=== PATIENT | female | born 1970 | race Caucasian/White ===

== ENCOUNTER 2020-06-24 23:55 | Emergency (ER) | payer SELFPAY ==
--- NOTE | ~2020-06-24 | CT_ITS ---
EXAMINATION: CTA chest PE protocol DATE: 06/25/2020 01:03 INDICATION: Shortness of breath and chest pain TECHNIQUE: Computed tomography angiography (CTA) of the chest was performed with 100 mL Omnipaque-350 intravenous contrast timed to evaluate the pulmonary arteries. Coronal maximum intensity projection 3D-reconstructions were created by the technologist. The dose-length product (DLP) was 581.39 mGy-cm. Automated exposure control and iterative reconstruction technique were employed. COMPARISON: None. FINDINGS: The pulmonary arteries are well-opacified. No pulmonary embolism is identified. There is mi ld atelectasis of the right middle lobe, lingula, and lower lobes. No pleural effusion or pneumothora x is identified. Left lower lobe nodules measure up to 3 mm. No pathologically enlarged thoracic lymp h nodes are identified. The heart size is normal. The gallbladder is surgically absent. There is mild thoracic spondylosis. IMPRESSION: 1. No pulmonary embolism. 2. Left lower lobe nodules measuring up to 3 mm. If the patient has no risk factors for malignancy, n o further follow up is required. If there are risk factors for malignancy (i.e., history of smoking, asbestos or radiation exposure), consider followup CT in 12 months. Reviewed, dictated and finalized at location A. IMPRESSION: 1. No pulmonary embolism. 2. Left lower lobe nodules measuring up to 3 mm. If the patient has no risk fac tors for malignancy, no further follow up is required. If there are risk facto rs for malignancy (i.e., history of smoking, asbestos or radiation exposure), c onsider followup CT in 12 months.
[2020-06-25 00:05] VITALS: BP 153/104; PULSE 102; RESP 28; TEMP 36.7; O2SAT 96
[2020-06-25 00:09] VITALS: PULSE 98
--- NOTE | 2020-06-25 00:09 | ECG_ITS ---
Measurements Intervals [place] Rate: 98 P: 65 OK: 157 QRS: -5 QRSD: 89 T: -6 QT: 355 QTc: 455 Interpretive Statements SINUS RHYTHM VOLTAGE CRITERIA FOR LVH MINIMAL Q WAVES- HIGH LATERAL LEADS BORDERLINE ST-T WAVE ABNORMALITY- INFERIOR LEADS BORDERLINE ECG Electronically Signed On 06-25-2020 6:48:27 CDT by Abundio Christine D.O.
--- NOTE | 2020-06-25 00:34 | ED.CHESTPAIN ---
HPI - Chest Pain General Chief Complaint: Chest Pain Stated Complaint: chest pains Time Seen by Provider: 06/25/20 00:19 History of Present Illness HPI narrative: Patient presents with her for lower chest pain for 4 days. She gives it a 7 out of 10. She has had chills with this and shortness of breath with exertion. She denies having any reflux symptoms.. She is not on control and there are no blood clots in her family. She has not had any fever. 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 She has been under a lot of stress. She does not have a cough. She does have a headache of 6 out of 10. At home she tried Tylenol and aspirin for her chest pain both of which helped a little. She does not smoke, drink alcohol, or do drugs. Her surgeries include a uterine ablation. MD complaint: chest pain Pertinent past history: other (Hypertension, not on meds.) Onset (ago): day(s) Timing of current episode: constant Prior episodes: Yes Onset: during rest and during exertion Pain location: substernal Severity: moderate Pain scale (0-10): 7 Relieving factors: nothing Exacerbating factors: nothing Context: non compliance with medication (Stop taking her Norvasc month ago) Associated symptoms: other (Chills) Treatment prior to arrival: aspirin and other (Tylenol) Risk Factors Coronary artery disease risk factors: hypertension Thoracic aortic dissection risk factors: longstanding hypertension Related Data On Oral Contraceptives: No Allergies Allergy/AdvReac Type Severity Reaction Status Date / Time epinephrine Allergy Mild PALPATATIONS, Verified 06/25/20 01:05 HEADACHE, SWEATS lisinopril Allergy Unknown abdominal Verified 06/25/20 01:05 pain aspartame AdvReac Severe SEVERE Verified 06/25/20 01:05 HEADACHE SOME TYPE OF NUMBING MED Allergy HIVES Uncoded 06/25/20 01:05 Review of Systems Review of Systems: Narrative: CONSTITUTIONAL: Denies fever, chills, or sweats. EYES: Denies visual changes, redness, or discharge. ENT: Denies rhinorrhea, congestion, sore throat, or otalgia. CARDIOVASCULAR: She has chest pain, but not palpitations, or edema. RESPIRATORY: Denies cough but does have dyspnea. GASTROINTESTINAL: Denies abdominal pain, nausea, vomiting, or diarrhea. GENITOURINARY: Denies dysuria or hematuria. SKIN: Denies rash or itching. MUSCULOSKELETAL: Denies back pain, joint pain, or myalgia. NEUROLOGIC: Denies headache, numbness, or weakness. PSYCHIATRIC: Denies anxiety or depression. All systems reviewed & are unremarkable except as noted in HPI and below PMFSH Surgical History Surgical History (Updated 06/25/20 @ 00:38 by Moni Walden MD) History of endometrial ablation Family History Family History (Updated 11/03/18 @ 09:10 by DOCTOR UNKNOWN) Father Carcinoma of colon, Onset Age: 50 Other Family history of cardiovascular disease Social History Social History Smoking status: Never smoker Alcohol intake: never Gender identity (if verbalized by the patient): Female Exam Narrative: Exam Narrative: GENERAL: Well-appearing, well-nourished, and in no acute distress. HEAD: Normocephalic, atraumatic. EYES: PERRLA and EOMI. ENT: Nares clear, no rhinorrhea or epistaxis. Mucous membranes moist. NECK: Supple. CHEST: Clear to auscultation. No respiratory distress. No chest wall tenderness HEART: Regular rate and rhythm. No murmur heard. Normal peripheral pulses. ABDOMEN: Soft, nontender, nondistended, normal active bowel sounds. EXTREMITIES: Normal range of motion. No edema. SKIN: Warm, dry, no rash. NEURO: No focal deficits. Alert and oriented x3. PSYCH: Normal mood and affect. Course Reevaluation(s) Reevaluation #1: Went back in to see the patient and her . I explained that the CAT scan did not give us any helpful information on why she is having the chest pain. She does feel better with the medicine given here. I recommen
[2020-06-25 00:44] LABS: Basophils Percent Auto 0.4 % (0.2-1.2); Eosinophils Absolute Auto 0.1 K/mm3 (0-0.3); Eosinophils Percent Auto 0.9 % (0-4.4); Hematocrit 38.7 % (37.0-47.0); Hemoglobin 12.8 g/dL (12.0-15.0); Immature Granulocyte Absolute 0.02 K/mm3 (0.00-0.031); Immature Granulocyte Percent A 0.2 % (0-0.5); Lymphocytes Absolute Auto 1.29 K/mm3 (0.9-3.2); Lymphocytes Percent Auto 14.5 % (18.3-44.2); Mean Corpuscular HGB Conc 33.1 g/dl (32-36); Mean Corpuscular Volume 87.6 fl (80-100); Mean Platelet Volume 10.2 fl (7.4-10.4); Monocytes Absolute Auto 0.9 K/mm3 (0.1-0.6); Monocytes Percent Auto 9.8 % (2.6-8.5); Neutrophils Absolute Auto 6.6 K/mm3 (1.3-6.7); Neutrophils Percent Auto 74.2 % (45.5-73.1); Platelet Count Result 216 k/mm3 (150-375); Red Blood Count 4.42 M/mm3 (4.2-5.4); Red Cell Distribution Width 13.2 % (11.5-14.5); White Blood Count 8.9 K/mm3 (4.5-10.0)
[2020-06-25 00:45] VITALS: BP 179/97; PULSE 96; RESP 18; O2SAT 96
[2020-06-25 00:56] LABS: Blood Urea Nitrogen 17 mg/dL (7-17); Carbon Dioxide 23 mmol/L (22-30); Chloride 104 mmol/L (98-107); Estimated Glomerular Filt Rate > 60; Glucose 114 mg/dL (65-105); Sodium 137 mmol/L (137-145)
[2020-06-25 00:56] LABS: Estimated Glomerular Filt Rate > 60
[2020-06-25 00:58] LABS: INR 1.2; Prothrombin Time 14.6 Seconds (11.1-14.7)
[2020-06-25 00:59] LABS: Partial Thromboplastin Time 33.8 SECONDS (22.3-36.8)
[2020-06-25] MEDS: FAMOTIDINE 20 MG/2 ML VIAL IV PUSH (01:06)
[2020-06-25] MEDS: SODIUM CHLORIDE 0.9% IV 1,000 ML 999 ML IV CONT (01:06)
[2020-06-25] MEDS: BELLADONNA ALK/PHENOB ELIX 10 ML, MAG HYDROX/ALUMINUM HYD/SIMETH 30 ML, LIDOCAINE HCL 2... PO (01:07)
[2020-06-25 01:08] LABS: Troponin I < 0.012 ng/mL (0.000-0.034)
[2020-06-25 01:11] LABS: NT Pro B Type Natriuretic Pept 217 PG/ML (5-100)
[2020-06-25] MEDS: KETOROLAC 15 MG/ML VIAL (*BKC) IV PUSH (01:19)
[2020-06-25 02:35] VITALS: BP 160/90; PULSE 98; RESP 21; O2SAT 97
== END 2020-06-25 02:46 | disposition home or self-care (01) ==
PROVIDERS: Emergency Provider Emergency Medicine
DX: R07.9 Chest pain, unspecified (principal); I10 Essential (primary) hypertension; R94.31 Abnormal electrocardiogram [ECG] [EKG]
CPT/HCPCS: 36415; 71275; 80048; 83880; 84484; 85025; 85610; 85730; 93005; 96361; 96374; 96375; 99284; A9270; J1885; J7030; Q9967

== ENCOUNTER 2020-09-26 16:41 | Emergency (ER) | payer OTHER, SELFPAY ==
--- NOTE | ~2020-09-26 | XR_ITS ---
EXAMINATION: XR knee RT 3V DATE: 09/26/2020 17:24 INDICATION: Right knee injury. TECHNIQUE: 3 views of right knee on 4 radiographs were obtained. COMPARISON: Right knee radiographs 07/31/2009 FINDINGS: Bone alignment is normal. No fracture. There is mild osteoarthritis of medial and patellofe moral compartments characterized by tiny marginal osteophytes. No knee joint effusion. IMPRESSION: 1. Mild right knee osteoarthritis. Reviewed, dictated and finalized at location A. ITUTIONAL RESEARCH COORDINATOR
--- NOTE | ~2020-09-26 | XR_ITS ---
EXAMINATION: XR hand LT min 3V DATE: 09/26/2020 17:24 INDICATION: Left hand pain. Fall. TECHNIQUE: 3 views of left hand were obtained. COMPARISON: Left wrist radiographs 07/31/2009 FINDINGS: Bone alignment is normal. No fracture. There is mild osteoarthritis of first carpometacarpa l joint. IMPRESSION: 1. Mild osteoarthritis of first carpometacarpal joint. Reviewed, dictated and finalized at location A. PLE JACK
[2020-09-26 16:45] VITALS: BP 145/98; PULSE 97; RESP 16; TEMP 37.1; O2SAT 96
--- NOTE | 2020-09-26 18:12 | ED.GENADULT ---
HPI - General Adult General Chief complaint: Fall Stated complaint: left hand injury Time Seen by Provider: 09/26/20 16:46 Source: patient Mode of arrival: ambulatory Limitations: no limitations History of Present Illness HPI narrative: Patient presents with chief complaint of pain to the left hand and right knee that began after tripping and falling at work and catching herself on her right knee and up with both hands at work. Patient states that the left hand is a wound that is uncomfortable, swollen and bruised. Patient reports abrasions to the anterior aspect of her right knee as well. Patient states that she has a job where she has to lifting so she does not feel that she to do so in the condition of her hand. Patient denies head injury, loss of consciousness or any other injuries. Related Data Allergies Allergy/AdvReac Type Severity Reaction Status Date / Time epinephrine Allergy Mild PALPATATIONS, Verified 06/25/20 01:05 HEADACHE, SWEATS lisinopril Allergy Unknown abdominal Verified 06/25/20 01:05 pain aspartame AdvReac Severe SEVERE Verified 06/25/20 01:05 HEADACHE SOME TYPE OF NUMBING MED Allergy HIVES Uncoded 06/25/20 01:05 Review of Systems Review of Systems: Narrative: CONSTITUTIONAL: Denies fever, chills, or sweats. EYES: Denies visual changes, redness, or discharge. ENT: Denies rhinorrhea, congestion, sore throat, or otalgia. CARDIOVASCULAR: Denies chest pain, palpitations, or edema. RESPIRATORY: Denies cough or dyspnea. GASTROINTESTINAL: Denies abdominal pain, nausea, vomiting, or diarrhea. GENITOURINARY: Denies dysuria or hematuria. SKIN: Reports abrasion denies rash or itching. MUSCULOSKELETAL: Reports left hand right knee pain injury denies back pain or myalgia. NEUROLOGIC: Denies headache, numbness, dizziness, or weakness. PSYCHIATRIC: Denies anxiety or depression. [facility] Surgical History Surgical History (Updated 06/25/20 @ 00:38 by Moni Walden MD) History of endometrial ablation Family History Family History (Updated 11/03/18 @ 09:10 by DOCTOR UNKNOWN) Father Carcinoma of colon, Onset Age: 50 Other Family history of cardiovascular disease Social History Social History Smoking status: Never smoker Alcohol intake: never Gender identity (if verbalized by the patient): Female Exam Narrative: Exam Narrative: GENERAL: Well-appearing, well-nourished, and in no acute distress. HEAD: Normocephalic, atraumatic. EYES: PERRLA and EOMI. ENT: Nares clear, no rhinorrhea or epistaxis. Mucous membranes moist. Bilateral TMs pearly [place] nonbulging NECK: Supple. No adenopathy or masses. No carotid bruits or JVD CHEST: Clear to auscultation. No respiratory distress. No wheezes rales or rhonchi HEART: Regular rate and rhythm. EXTREMITIES: Tenderness, swelling and ecchymosis to the anterior aspect of right knee as well as the base of the first left metacarpal.tenderness to palpation or range of motion. No open wounds noted to left hand. There is no bony tenderness with palpation of right hand. Normal range of motion. No edema. SKIN: Abrasion to anterior aspect of right knee. Nonbleeding. Warm, dry, no rash. NEURO: No focal deficits. Alert and oriented x3. PSYCH: Normal mood and affect. Course Vital Signs Vital signs: Vital Signs Temperature 98.7 F 09/26/20 16:45 Pulse Rate 97 09/26/20 16:45 Respiratory Rate 16 09/26/20 16:45 Blood Pressure 145/98 H 09/26/20 16:45 Pulse Oximetry 96 09/26/20 16:45 Temperature 98.7 F 09/26/20 16:45 Pulse Rate 97 09/26/20 16:45 Respiratory Rate 16 09/26/20 16:45 Blood Pressure 145/98 H 09/26/20 16:45 Pulse Oximetry 96 09/26/20 16:45 Medical Decision Making [facility] Narrative Medical decision making narrative: Patient informed that she has no fractures. Patient has contusions in was given RICE instructions. Patient will be given a note t
[2020-09-26 18:33] VITALS: BP 138/80; PULSE 80; RESP 16; O2SAT 99
== END 2020-09-26 18:34 | disposition home or self-care (01) ==
PROVIDERS: Emergency Provider Family Medicine
DX: S60.222A Contusion of left hand, initial encounter (principal); S80.01XA Contusion of right knee, initial encounter; M18.9 Osteoarthritis of first carpometacarpal joint, unspecified; M17.11 Unilateral primary osteoarthritis, right knee; W01.0XXA Fall on same level from slipping, tripping and stumbling without subsequent striking against object, initial encounter
CPT/HCPCS: 73130; 73562; 99284

== ENCOUNTER 2024-03-29 10:49 | Emergency (ER) | payer BC, SELFPAY ==
[2024-03-29 10:59] VITALS: BP 132/97; PULSE 92; RESP 16; TEMP 36.6; O2SAT 99
--- NOTE | 2024-03-29 11:15 | ED.URI ---
HPI - URI/Sore Throat General Chief Complaint: Upper Respiratory Infection Stated Complaint: COUGH/CHEST/EARS CLOGGED/EYE REDNESS Time Seen by Provider: 03/29/24 11:15 Source: patient Mode of arrival: ambulatory Limitations: no limitations History of Present Illness HPI Narrative: 53 year old female presented for complaint of productive cough, nasal congestion and sinus pressure over the past week. Endorses left ear pressure and has no voice. Feels dizzy at times which she relates to the nasal congestion. Taking allergy med, coricidin, and Vicks without significant improvement. Patient also reports bilateral eyes of bed redness, itching and drainage. She endorses a child was diagnosed with pinkeye and she has been sharing there eye drops. Denies chest pain, palpitations, shortness breath, wheezing nausea vomiting, diarrhea, fevers or chills. Related Data Home Medications Medication Instructions Recorded Confirmed losartan 100 1 tablet PO DAILY 03/29/24 03/29/24 mg-hydrochlorothiazide 12.5 mg tablet Allergies Allergy/AdvReac Type Severity Reaction Status Date / Time epinephrine Allergy Mild PALPATATIONS, Verified 03/29/24 11:06 HEADACHE, SWEATS lisinopril Allergy Unknown abdominal Verified 03/29/24 11:06 pain aspartame AdvReac Severe SEVERE Verified 03/29/24 11:06 HEADACHE SOME TYPE OF NUMBING MED Allergy HIVES Uncoded 03/29/24 11:06 Review of Systems Review of Systems: CONSTITUTIONAL: Denies body aches, fever, chills, or sweats. EYES: Denies visual changes, redness, or discharge. ENT: Reports rhinorrhea, congestion, otalgia. CARDIOVASCULAR: Denies chest pain, palpitations, or edema. RESPIRATORY: Reports cough, denies sob, wheezing. GASTROINTESTINAL: Denies abdominal pain, nausea, vomiting, or diarrhea. SKIN: Denies rash, itching, or wounds. MUSCULOSKELETAL: Denies back pain, joint pain, or myalgia. NEUROLOGIC: Denies headache, numbness, tingling, or weakness. All systems reviewed & are unremarkable except as noted in HPI and below PMFSH Surgical History Surgical History History of endometrial ablation Family History Family History Father Carcinoma of colon, Onset Age: 50 Other Family history of cardiovascular disease Social History Social History Smoking status: Never smoker Alcohol intake: never Gender identity (if verbalized by the patient): Female Comments At time of signature, I have reviewed and agree with nursing past medical, surgical, social and family history unless otherwise noted. Please see nursing chart for further information. There is no relevant family history pertinent to the presenting complaint Exam Narrative: GENERAL: Well-appearing EYES: EOMI. No redness or drainage. Conjunctivae normal bilaterally ENT: Mucous membranes pink and moist. nasal congestion. Left TM unable to visualize due to excess cerumen. Right TM normal light reflex. Throat normal. Uvula midline. NECK: Normal AROM. Supple. CHEST: No respiratory distress. Coarse lung sounds clear with coughing; frequent moist blocking machine tender cough. HEART: Regular rate and rhythm. No murmur appreciated. ABDOMEN: Soft, nontender, nondistended, normal active bowel sounds. EXTREMITIES: Normal range of motion. No edema. SKIN: Warm, dry, no rash. Capillary refill normal. Normal skin turgor. NEURO: Alert and oriented x3. Gait steady. PSYCH: Normal affect. Course Course Emergency Course: Patient is aware of diagnosis, understands and agrees to treatment plan. Anticipatory guidance given. Patient agrees to follow-up as directed and is aware of reasons to seek care at the emergency department. Portions of this record may have been created with voice recognition software Level of Care: [facility] Visit Vital
== END 2024-03-29 11:30 | disposition home or self-care (01) ==
PROVIDERS: Emergency Provider Nurse Practitioner Family; PCP Physician Assistant
DX: J40 Bronchitis, not specified as acute or chronic (principal); J32.9 Chronic sinusitis, unspecified; H10.9 Unspecified conjunctivitis
CPT/HCPCS: 99203; G0463

== ENCOUNTER 2024-08-08 09:48 | Emergency (ER) | payer BC, SELFPAY ==
[2024-08-08 10:07] VITALS: BP 148/81; PULSE 89; RESP 16; TEMP 36.5; O2SAT 100
--- NOTE | 2024-08-08 10:35 | ED.URI ---
HPI - URI/Sore Throat General Chief Complaint: Upper Respiratory Infection Stated Complaint: EARS CLOGGED/COUGH/CHEST/CONGESTION Time Seen by Provider: 08/08/24 10:35 Source: patient, RN notes reviewed and old records reviewed Mode of arrival: ambulatory Limitations: no limitations History of Present Illness HPI Narrative: 53-year-old female to [facility] with complaint of productive and bilateral ear pressure/pain for 1 week. Patient has attempted to treat at home with Tylenol and Vicks with little relief. Patient endorses history of bronchitis. Patient denies chest pain, shortness of breath, sore throat, pertinent medical history. Patient able to tolerate fluids by mouth. Patient resting in exam room in no acute distress. Respirations even and nonlabored. Related Data Home Medications Medication Instructions Recorded Confirmed losartan 100 1 tablet PO DAILY 03/29/24 08/08/24 mg-hydrochlorothiazide 12.5 mg tablet Allergies Allergy/AdvReac Type Severity Reaction Status Date / Time epinephrine Allergy Mild PALPATATIONS, Verified 08/08/24 10:29 HEADACHE, SWEATS lisinopril Allergy Unknown abdominal Verified 08/08/24 10:29 pain aspartame AdvReac Severe SEVERE Verified 08/08/24 10:29 HEADACHE SOME TYPE OF NUMBING MED Allergy HIVES Uncoded 08/08/24 10:29 Review of Systems Review of Systems: All systems reviewed & are unremarkable except as noted in HPI and below Constitutional: Constitutional: Reports fatigue Eyes: Eyes: Reports no additional eye complaints ENT: Reports as per HPI and Reports otalgia Cardiovascular: Cardiovascular: Reports no additional cardiovascular complaints, Denies chest pain and Denies dyspnea Respiratory: Respiratory: Reports no additional respiratory complaints, Reports change in phlegm color, Reports cough and Denies dyspnea Musculoskeletal: Musculoskeletal: Reports no additional musculoskeletal complaints Neurologic: Reports system reviewed and no additional complaints, except as documented Psychiatric: Psychiatric: Reports no additional psychiatric complaints [facility] Surgical History Surgical History History of endometrial ablation Family History Family History Father Carcinoma of colon, Onset Age: 50 Other Family history of cardiovascular disease Social History Social History Smoking status: Never smoker Alcohol intake: never Gender identity (if verbalized by the patient): Female Comments At the time of my signature, I reviewed and agree with the nursing past medical, surgical, social, and family history. There is no relevant family history pertinent to the patient complaint. Exam Const: General: cooperative, no acute distress, well developed, alert, tired appearing, uncomfortable, well groomed and well nourished Nutritional Appearance: well nourished Orientation/consciousness: patient oriented x3 Limitations: no limitations HENMT: Head: normal to inspection Ears: external ears normal, Abnormal EAC present and TM abnormal bulging on the left, dull on the left, with fluid behind the TM on the left and with loss of landmarks on the left Face/Nose/Sinus: Normal external nose present, Normal nares present, normal facial exam, No erythema and No edema Face and sinus: normal facial exam, no erythema and no edema Mouth: Yes Normal oral and palatal mucosa present Throat: posterior oropharynx abnormal erythema and postnasal drainage Eyes: General: appearance normal, both eyes and all related structures Neck: Neck: normal visual inspection, full ROM and no meningeal signs Lymphatic: no lymphadenopathy noted and no lymphedema noted Chest: Chest palpation & inspection: normal inspection of the chest Resp: Effort & Inspection: normal respiratory
== END 2024-08-08 10:55 | disposition home or self-care (01) ==
PROVIDERS: Emergency Provider Nurse Practitioner Family; PCP Physician Assistant
DX: H66.92 Otitis media, unspecified, left ear (principal)
CPT/HCPCS: 99213; G0463

== ENCOUNTER 2025-08-04 16:18 | Emergency (ER) | payer BC, SELFPAY ==
[2025-08-04 16:24] VITALS: BP 148/88; PULSE 86; RESP 16; TEMP 37; O2SAT 98
--- NOTE | 2025-08-04 16:52 | ED.GENADULT ---
HPI - General Adult General Chief complaint: Wound/Laceration Stated complaint: Wasp Sting Time Seen by Provider: 08/04/25 16:53 Source: patient, RN notes reviewed and old records reviewed Mode of arrival: ambulatory Limitations: no limitations History of Present Illness HPI narrative: 54-year-old female presents to the [facility] with complaints of a wasp sting yesterday. Reports that she was stung in her left hand, swelling is noted. Had applied different creams Denies any shortness of breath, lip or tongue swelling. Related Data Home Medications ?Medication ?Instructions ?Recorded ?Confirmed ?Last Taken ?Type losartan 100 1 tablet PO DAILY 03/29/24 08/08/24 Unknown History mg-hydrochlorothiazide 12.5 mg tablet Allergies Allergy/AdvReac Type Severity Reaction Status Date / Time epinephrine Allergy Mild PALPATATIONS, Verified 08/08/24 10:29 HEADACHE, SWEATS lisinopril Allergy Unknown abdominal Verified 08/08/24 10:29 pain aspartame AdvReac Severe SEVERE Verified 08/08/24 10:29 HEADACHE SOME TYPE OF NUMBING MED Allergy HIVES Uncoded 08/08/24 10:29 Review of Systems Review of Systems: All systems reviewed & are unremarkable except as noted in HPI and below Constitutional: Constitutional: Reports no additional constitutional complaints ENT: Reports system reviewed and no additional complaints, except as documented Cardiovascular: Cardiovascular: Reports no additional cardiovascular complaints, Denies chest pain and Denies dyspnea Respiratory: Respiratory: Reports no additional respiratory complaints, Denies chest congestion, Denies cough and Denies dyspnea Musculoskeletal: Musculoskeletal: Reports as per HPI Integumentary/Breasts: Skin/Breast: Reports as per HPI [facility] Surgical History Surgical History History of endometrial ablation Family History Family History Father Carcinoma of colon, Onset Age: 50 Other Family history of cardiovascular disease Social History Social History Smoking status: Never smoker Alcohol intake: never Gender identity (if verbalized by the patient): Female Comments At the time of my signature, I reviewed and agree with the nursing past medical, surgical, social, and family history. There is no relevant family history pertinent to the patient complaint. Exam Const: General: cooperative, healthy appearing, comfortable, no acute distress, well developed, alert and well nourished Nutritional Appearance: well nourished Orientation/consciousness: patient oriented x3 Limitations: no limitations HENMT: Head: normal to inspection Mouth: Yes Normal oral and palatal mucosa present, Yes lip normal, Yes tongue normal and Yes moist mucous membranes Eyes: General: appearance normal, both eyes and all related structures Alignment and Position: alignment normal Neck: Neck: normal visual inspection, full ROM, no lymphadenopathy and no meningeal signs Chest: Chest palpation & inspection: normal inspection of the chest Resp: Effort & Inspection: normal respiratory effort and able to speak in complete sentences Auscultation: clear to auscultation bilaterally, no crackles, no rales, no rhonchi and no wheezes Cardio: Rate: regular rate Skin: General skin exam: normal color and no rashes or lesions noted Neuro: General: patient oriented x3, gait normal, moves all extremities and no meningeal signs Cognition (Neuro): normal cognition Speech: normal speech Gait exam (Neuro): Normal gait present Extrem: General: normal to inspection, full ROM, capillary refill normal and normal gait Left upper extremity: full ROM and hand normal capillary refill, neuromotor exam normal Details: wrist extension normal and thumb opposition normal, vascular exam radial pulse present and normal capillary refill, normal ROM of fingers and swelling of the dorsal hand Psych: Appearance: grossly normal and well kempt Mental Status: mental status grossly normal Speech and movement: Normal speech and movement present and Clear speech present Affect: normal affect Attitude: cooperative Course Course Level of Care: Express Care Visit Vital Signs Vital signs: Vital Signs Temperature 98.6 F 08/04/25 16:24 Pulse Rate 86 08/04/25 16:24 Respiratory Rate 16 08/04/25 16:24 Blood Pressure 148/88 H 08/04/25 16:24 Pulse Oximetry 98 08/04/25 16:24 Oxygen Delivery Room Air 08/04/25 16:24 Temperature 98.6 F 08/04/25 16:24 Pulse Rate 86 08/04/25 16:24 Respiratory Rate 16 08/04/25 16:24 Blood Pressure 148/88 H 08/04/25 16:24 Pulse Oximetry 98 08/04/25 16:24 Oxygen Delivery Room Air 08/04/25 16:24 Reviewed Medical Decision Making MDM Narrative Medical decision making narrative: Patient sitting comfortably in exam room. Patient is nontoxic, vitals stable. Patient presents with a wasp sting yesterday. Patient appropriate for outpatient treatment with [id number] products, will prescribe prednisone Discharge instructions reviewed with patient, as well as provided in writing per nursing staff. The instructions also include specific and strict return/GO TO THE ER as well as f/u information. All questions have been answered, and the patient deny any further questions with discharge and discharge plan. Some parts of this dictation were generated by voice recognition software and may contain typographical and/or grammatical inaccuracies. Differential Diagnosis Differential Diagnosis: Cellulitis, eczema, localized allergic reaction Medical Records Medical records reviewed: Yes I reviewed the external patient's medical records. Vital Signs Vital Signs: Vital Signs Temperature 98.6 F 08/04/25 16:24 Pulse Rate 86 08/04/25 16:24 Respiratory Rate 16 08/04/25 16:24 Blood Pressure 148/88 H 08/04/25 16:24 Pulse Oximetry 98 08/04/25 16:24 Oxygen Delivery Room Air 08/04/25 16:24 Temperature 98.6 F 08/04/25 16:24 Pulse Rate 86 08/04/25 16:24 Respiratory Rate 16 08/04/25 16:24 Blood Pressure 148/88 H 08/04/25 16:24 Pulse Oximetry 98 08/04/25 16:24 Oxygen Delivery Room Air 08/04/25 16:24 Reviewed Lab Data Lab results reviewed: Yes I reviewed the patient's lab results. Labs: Reviewed Critical Care Time Critical Care Time Critical Care Time: No Discharge Plan Discharge Clinical Impression: Accidental wasp sting Patient Disposition: Home Condition: Stable Instructions: Insect Bite or Sting (ED), Allergies (ED) Additional Instructions: The most important part of your care is follow up with Primary care provider. Today your blood pressure was 148/88 Take Benadryl 25-50 mg every 8 hours for itching Take Zyrtec every day for 7 days Take Pepcid 20mg daily for 7 days Take the steroids starting tonight, you could wait till the morning because prednisone sometimes keeps people awake. Apply cool compresses every 2-3 hours for 15 minutes Go to the ER for new or worsening symptoms such as shortness of breath. Patient Language: Estonian Prescriptions: New prednisone 20 mg tablet See Rx Instructions .Route .COMPLEX Qty: 9 0RF Rx Instructions: Take 40 mg daily for 3 days, 20 mg daily for 3 days No Action losartan-hydrochlorothiazide 100-12.5 mg tablet 1 tablet PO DAILY Follow-up/Referrals: PHYSICIAN,BLINDMAKER [Primary Care Provider, Internal Medicine] Stand Alone Forms: Work/School Release IP Time of Disposition: 17:05
== END 2025-08-04 17:07 | disposition home or self-care (01) ==
PROVIDERS: Emergency Provider Nurse Practitioner
DX: T63.461A Toxic effect of venom of wasps, accidental (unintentional), initial encounter (principal)
CPT/HCPCS: 99213; G0463

== ENCOUNTER 2025-09-04 19:39 | Emergency (ER) | payer BC, SELFPAY ==
--- NOTE | 2025-09-04 19:41 | ED.URI ---
HPI - URI/Sore Throat General Chief Complaint: Upper Respiratory Infection Stated Complaint: SORE THROAT Time Seen by Provider: 09/04/25 19:40 Source: patient Mode of arrival: ambulatory Limitations: no limitations History of Present Illness HPI Narrative: Alka is a 54-year-old female patient presenting to the clinic today with complaints of sore throat, nasal congestion, feels as though her cervical glands are swollen, sinus pressure, cough, and bilateral ear pain-difficulty hearing x3 weeks. She reports no known fever chills. Is coughing up and blowing out yellow nasal drainage. Denies any shortness of breath or chest pain. Related Data Home Medications ?Medication ?Instructions ?Recorded ?Confirmed ?Last Taken ?Type losartan 100 1 tablet PO DAILY 03/29/24 09/04/25 Unknown History mg-hydrochlorothiazide 12.5 mg tablet atorvastatin 20 mg tablet mg 09/04/25 Unknown History carvedilol 6.25 mg tablet mg 09/04/25 Unknown History Allergies Allergy/AdvReac Type Severity Reaction Status Date / Time epinephrine Allergy Mild PALPATATIONS, Verified 09/04/25 19:46 HEADACHE, SWEATS lisinopril Allergy Unknown abdominal Verified 09/04/25 19:46 pain aspartame AdvReac Severe SEVERE Verified 09/04/25 19:46 HEADACHE SOME TYPE OF NUMBING MED Allergy HIVES Uncoded 08/08/24 10:29 Review of Systems Review of Systems: Pertinent positives per HPI. Patient denies any fever, chills, rash, visual changes, dizziness, shortness of breath, chest pain, palpitations, nausea, vomiting, diarrhea, constipation, abdominal pain, or any urinary issues. [facility] Surgical History Surgical History History of endometrial ablation Family History Family History Father Carcinoma of colon, Onset Age: 50 Other Family history of cardiovascular disease Social History Social History Smoking status: Never smoker Alcohol intake: never Gender identity (if verbalized by the patient): Female Comments At the time of my signature, I reviewed and agree with the nursing past medical, surgical, social, and family history. There is no relevant family history pertinent to the patient complaint. Exam Narrative: General: Well-developed, obese, in no apparent distress Head: Normocephalic, atraumatic Eyes: Pupils equally round and reactive to light bilaterally, EOM intact, sclera and conjunctive clear, no discharge, lids normal Ears: TMs intact and congested, ear canals clear, no drainage, grossly hearing normal. Nose: Nares patent, yellow nasal discharge, monitor inflammation, no sinus tenderness. Mouth: Oral pharynx red without lesions or masses, good dentition, MMM. Postnasal drip Neck: Supple, trachea midline, no enlargement of anterior or posterior cervical nodes, no thyroid masses or goiter palpable. Cardio: Regular rate and rhythm, s1 and s2 normal, no murmur appreciated. Resp: Clear to auscultation bilaterally, no rhonchi, rales, wheezing or rubs Course Course Emergency Course: Portions of this record may have been created with voice recognition software. Level of Care: Express Care Visit Vital Signs Vital signs: Vital Signs Temperature 36.8 C 09/04/25 19:46 Pulse Rate 80 09/04/25 19:46 Respiratory Rate 16 09/04/25 19:46 Blood Pressure 157/83 H 09/04/25 19:46 Pulse Oximetry 99 09/04/25 19:46 Temperature 36.8 C 09/04/25 19:46 Pulse Rate 80 09/04/25 19:46 Respiratory Rate 16 09/04/25 19:46 Blood Pressure 157/83 H 09/04/25 19:46 Pulse Oximetry 99 09/04/25 19:46 Vital signs reviewed MDM - URI/Sore Throat MDM Narrative Medical decision making narrative: At the time of visit patient is resting comfortably on the exam table. Patient appears to be nontoxic. Complaints of sore throat, nasal congestion, feels as though her cervical glands are swollen sinus pressure, cough, and bilateral ear pain-difficulty hearing x3 weeks. She reports no known fever chills. Is coughing up and blowing out yellow nasal drainage. Denies any shortness of breath or chest pain. On exam patient has bilateral TM congestion with mild bulging, yellow nasal drainage, moderate anterior turbinate inflammation, oral pharynx mildly red with postnasal drip, no cervical lymphadenopathy, lung sounds are clear, heart rates regular rate and rhythm Plan: I suspect patient has acute sinusitis/pharyngitis/postnasal drip. Prescription for Augmentin and prednisone was sent to the pharmacy. Supportive measures were discussed with the patient and they voiced understanding discharge instructions and agrees to treatment plan. Return precautions reviewed Differential Diagnosis Differential diagnosis: Likely upper respiratory infection, otitis media, sinusitis, viral infection, bronchitis, influenza, pharyngitis and other (COVID) Discharge Plan Discharge Clinical Impression: Pharyngitis Sinusitis Qualifiers: Sinusitis location: maxillary Chronicity: acute Recurrence: non-recurrent Qualified Code(s): J01.00 - Acute maxillary sinusitis, unspecified Patient Disposition: Home Condition: Stable Instructions: Antibiotic Form, Pharyngitis (ED), Sinusitis (ED) Additional Instructions: Take prescription medications only as prescribed-prednisone and Augmentin Increase fluids and stay well hydrated May take Tylenol or motrin as directed on bottle for pain/fever May use Flonase 1 spray in each nare daily May take OTC antihistamines such as Zyrtec or Claritin daily as directed on bottle May apply Vicks vapor rub to chest to open sinuses Sinus rinses for congestion Cepacol spray, cough drops, throat lozenges, warm tea with honey/lemon, gargle salt water to soothe throat BRAT diet for diarrhea Clear liquids x 24 hours then advance as tolerated for nausea/vomiting Go to the ED if you develop a worsening in your condition- high fever not controlled by Tylenol or Motrin, dehydration, weakness, lethargy, shortness of breath, or chest pain. Follow up with your PCP in 3-5 days if symptoms persist. Patient Language: Albanian Prescriptions: New prednisone 20 mg tablet 40 mg PO DAILY 5 Days Qty: 10 0RF amoxicillin-pot clavulanate 875-125 mg tablet 1 tablet PO Q12H 10 Days Qty: 20 0RF No Action losartan-hydrochlorothiazide 100-12.5 mg tablet 1 tablet PO DAILY prednisone 20 mg tablet See Rx Instructions .Route .COMPLEX Qty: 9 0RF Rx Instructions: Take 40 mg daily for 3 days, 20 mg daily for 3 days carvedilol 6.25 mg tablet atorvastatin 20 mg tablet Follow-up/Referrals: Jahaira,FRANCISCA Robb [Primary Care Provider, Unknown] Time of Disposition: 19:49 Quality NIHSS Nursing Documentation ED NIHSS nursing documentation: reviewed/agree
[2025-09-04 19:46] VITALS: BP 157/83; PULSE 80; RESP 16; TEMP 36.8; O2SAT 99
== END 2025-09-04 19:55 | disposition home or self-care (01) ==
PROVIDERS: Emergency Provider Nurse Practitioner Family; PCP Physician Assistant
DX: J02.9 Acute pharyngitis, unspecified (principal); J01.00 Acute maxillary sinusitis, unspecified
CPT/HCPCS: 99213; G0463

== ENCOUNTER 2025-11-13 18:03 | Emergency (ER) | payer BC, SELFPAY ==
[2025-11-13 18:29] VITALS: BP 146/90; PULSE 99; RESP 16; TEMP 36.2; O2SAT 98
[2025-11-13 18:47] LABS: EDCOVIDSCREEN Negative (Negative); EDINFLUASCREEN Negative (Negative); EDINFLUBSCREEN Negative (Negative)
--- NOTE | 2025-11-13 19:10 | ED.URI ---
HPI - URI/Sore Throat General Chief Complaint: Upper Respiratory Infection Stated Complaint: CONGESTION/LOSING VOICE/HOT & COLD Time Seen by Provider: 11/13/25 18:40 Source: patient and RN notes reviewed Mode of arrival: ambulatory Limitations: no limitations History of Present Illness HPI Narrative: 55-year-old female patient presents today complaining of 2 day history of bilateral ear clogging and pain, rhinorrhea, postnasal drip, sore throat. She has been taking Tylenol, ibuprofen, and Flonase without much relief. She has 3 sick children at home as well, 1 has been diagnosed with influenza. Related Data Home Medications ?Medication ?Instructions ?Recorded ?Confirmed ?Last Taken ?Type losartan 100 1 tablet PO DAILY 03/29/24 09/04/25 Unknown History mg-hydrochlorothiazide 12.5 mg tablet atorvastatin 20 mg tablet mg 09/04/25 Unknown History carvedilol 6.25 mg tablet mg 09/04/25 Unknown History Allergies Allergy/AdvReac Type Severity Reaction Status Date / Time epinephrine Allergy Mild PALPATATIONS, Verified 11/13/25 18:22 HEADACHE, SWEATS lisinopril Allergy Unknown abdominal Verified 11/13/25 18:22 pain aspartame AdvReac Severe SEVERE Verified 11/13/25 18:22 HEADACHE SOME TYPE OF NUMBING MED Allergy HIVES Uncoded 08/08/24 10:29 PMFSH Surgical History Surgical History History of endometrial ablation Family History Family History Father Carcinoma of colon, Onset Age: 50 Other Family history of cardiovascular disease Social History Social History Smoking status: Never smoker Alcohol intake: never Gender identity (if verbalized by the patient): Female Comments At time of signature, I have reviewed and agree with nursing past medical, surgical, social and family history unless otherwise noted. Please see nursing chart for further information. There is no relevant family history pertinent to the presenting complaint Exam Narrative: GENERAL: Mildly ill-appearing, well-nourished, and in no acute distress. HEAD: Normocephalic, atraumatic. EYES: EOMI. No redness or drainage. Conjunctivae normal. ENT: Mucous membranes pink and moist. Nares clear. + rhinorrhea. Bilateral TMs are severely erythematous and bulging with purulent material. Throat normal. Uvula midline. NECK: Normal AROM. Supple. No lymphadenopathy. CHEST: No respiratory distress. Clear to auscultation. HEART: Regular rate and rhythm. No murmur appreciated. EXTREMITIES: Normal range of motion. No edema. SKIN: Warm, dry, no rash. Capillary refill normal. Normal skin turgor. NEURO: No focal deficits. Alert and oriented x3. Gait steady. PSYCH: Normal affect. No signs of depression or anxiety. Course Course Level of Care: Express Care Visit Vital Signs Vital signs: Vital Signs Temperature 97.1 F L 11/13/25 18:29 Pulse Rate 99 11/13/25 18:29 Respiratory Rate 16 11/13/25 18:29 Blood Pressure 146/90 H 11/13/25 18:29 Pulse Oximetry 98 11/13/25 18:29 Temperature 97.1 F L 11/13/25 18:29 Pulse Rate 99 11/13/25 18:29 Respiratory Rate 16 11/13/25 18:29 Blood Pressure 146/90 H 11/13/25 18:29 Pulse Oximetry 98 11/13/25 18:29 Reviewed MDM MDM Narrative Medical decision making narrative: 55-year-old female patient presents today complaining of 2 day history of bilateral ear clogging and pain, rhinorrhea, postnasal drip, sore throat. She has been taking Tylenol, ibuprofen, and Flonase without much relief. She has 3 sick children at home as well, 1 has been diagnosed with influenza. Upon exam, patient is mildly ill appearing with nasal congestion, rhinorrhea. Bilateral TMs are erythematous and bulging purulent material. Patient's influenza and COVID tests were negative. She will be treated with Augmentin for bilateral otitis media. Remainder of symptoms are likely viral in etiology, likely influenza. Patient agrees with plan. Vital signs stable. Anticipatory guidance given. Differential Diagnosis Differential Diagnosis: URI, AOM, influenza, COVID-19 Lab Data Labs: Lab Results 11/13/25 Range/Units 18:45 POC Influenza A Ag Negative (Negative) POC Influenza B Ag Negative (Negative) POC SARS CoV-2 Ag Negative (Negative) Critical Care Time Critical Care Time Critical Care Time: No Discharge Plan Discharge Clinical Impression: Acute suppurative otitis media of both ears without spontaneous rupture of tympanic membranes Qualifiers: Recurrence: non-recurrent Qualified Code(s): H66.003 - Acute suppurative otitis media without spontaneous rupture of ear drum, bilateral Patient Disposition: Home Condition: Stable Instructions: Antibiotic Form, Ear Infection (GEN) Additional Instructions: Please take the Augmentin as prescribed until gone. Continue the Flonase for your ear pressure. Continue [id number] medication for symptoms as well. Follow-up with your PCP in 3 days if symptoms are not improving. Patient Language: Malagasy Prescriptions: New fluticasone propionate [Flonase Allergy Relief] 50 mcg/actuation spray,suspension 2 spray intranasal DAILY PRN (Reason: nasal congestion) Qty: 15.8 0RF Rx Instructions: administer into each nostril amoxicillin-pot clavulanate 875-125 mg tablet 1 tablet PO Q12H 7 Days Qty: 14 0RF No Action losartan-hydrochlorothiazide 100-12.5 mg tablet 1 tablet PO DAILY carvedilol 6.25 mg tablet atorvastatin 20 mg tablet Follow-up/Referrals: Jahaira,FRANCISCA Robb [Primary Care Provider, Unknown] Time of Disposition: 19:14
== END 2025-11-13 19:15 | disposition home or self-care (01) ==
PROVIDERS: Emergency Provider Nurse Practitioner; PCP Physician Assistant
DX: H66.003 Acute suppurative otitis media without spontaneous rupture of ear drum, bilateral (principal); Z20.822 Contact with and (suspected) exposure to COVID-19
CPT/HCPCS: 87426; 87804; 99213; G0463